=== PATIENT | female | born 1955 | race Caucasian/White ===

== ENCOUNTER 2019-04-04 06:22 | Day surgery (SDC) | payer OTHER ==
[2019-04-03 09:48] VITALS: BMI 35.3
--- NOTE | 2019-04-04 09:58 | HP ---
History & Physical Update - History History: No Change (Consent signed and witnessed All questions answered) - Physical Physical: No Change - Assessment Assessment: No Change - Plan Plan: No Change (Procedure explained to the patient Consent signed and witnessed )
[2019-04-04] MEDS ORDERED: IBUPROFEN 600 MG TABLET (FP) PO PRN (09:59)
[2019-04-04] MEDS ORDERED: IBUPROFEN 800 MG/8 ML IJ IVPB PRN (09:59)
[2019-04-04] MEDS ORDERED: ONDANSETRON 4 MG/2 ML VIAL IVPUSH PRN ×2 (09:59→11:05)
[2019-04-04] MEDS ORDERED: oxyCODONE HCL 5 MG TABLET PO PRN ×2 (09:59→11:05)
[2019-04-04] MEDS ORDERED: ELECTROLYTE-148 SOLN 1,000 ML IV SCH (10:00)
--- NOTE | 2019-04-04 10:00 | OP ---
Operative Note - Note: Operative Date: 04/04/19 Pre-Operative Diagnosis: 63yo with thick Endometrium Operation: Hysteroscopy Myomectomy, polypectomy, D&C Findings: 1. Anterior/fundal 1cm fibroid - removed sent to pathology 2. Low uterine segment polyp - removed sent to pathology Post-Operative Diagnosis: Same as Pre-op Surgeon: Glenna Nicholson Anesthesiologist/MAINS AND SERVICE SUPERVISOR: Linda Vega MD Anesthesia: General Estimated Blood Loss (mls): 5 Drains, Volume Out (mls): 100 Fluid Volume Replaced (mls): 600 Operative Report Dictated: Yes
[2019-04-04] MEDS ORDERED: MIDAZOLAM HCL 2 MG/2 ML SINGLE DOSE VIAL ONE (10:03)
[2019-04-04] MEDS ORDERED: PROPOFOL 20 ML ONE (10:08)
[2019-04-04] MEDS ORDERED: PROMETHAZINE HCL 25 MG/1 ML VIAL IVPB PRN (11:05)
[2019-04-04] MEDS ORDERED: LACTATED RINGERS SOLUTION 1,000 ML IV SCH (11:15)
[2019-04-04 13:31] VITALS: BP 131/71; PULSE 66; TEMP 98
--- NOTE | 2019-04-04 22:01 | OP ---
DATE OF OPERATION: 04/04/2019 PREOPERATIVE DIAGNOSIS: A 63-year-old with thick endometrium. OPERATION: Hysteroscopy, myomectomy, polypectomy, dilation and curettage. FINDINGS: Anterior fundal 1-cm fibroid, removed and sent to Pathology; and lower uterine segment polyp removed and sent to Pathology. POSTOPERATIVE DIAGNOSIS: A 63-year-old with thick endometrium. SURGEON: Glenna Nicholson MD ANESTHESIOLOGIST: Linda Vega MD ANESTHESIA: General. DESCRIPTION OF THE OPERATIVE PROCEDURE: After assuring informed consent, patient was brought to the operating room, where she was placed in dorsal lithotomy position. Perineum and vagina were prepped and draped in sterile fashion. Mcduffie retractors were placed into the vagina and cervix was articulated with single-tooth tenaculum. Cervix was dilated without any difficulty and a Symphion hysteroscope was introduced into the cervix and the uterus. Above findings were noted, and the hand-held resecting device was introduced through the resecting port. A 9-Greek resecting device was used to remove the fibroid and the polyp. Excellent hemostasis was noted. All instruments were removed from the uterus, cervix, and vagina. Estimated blood loss 5 mL. Urine output 100 mL. The patient received 600 mL of IV fluid. Patient tolerated the procedure well. Instrument and sponge count was correct x2. Patient was brought to the recovery room in stable condition. Karishma [id number]
--- NOTE | 2019-04-05 18:05 | PATH ---
Surgical Pathology Report Patient Name: KRISTEL HANSEN [facility]. Rec. #: [id number] /Age/Gender: 1955 (Age: 63) / F Account: [id number] Location: [facility] Taken: 04/04/2019 Received: 04/04/2019 Reported: 04/05/2019 Physicians: Glenna Nicholson M.D. Specimen(s) Received A: ENDOMETRIAL CURETTINGS B: FIBROID Clinical History Endometrial polyp Final Diagnosis A. ENDOMETRIAL CURETTINGS, DILATION AND CURETTAGE: FRAGMENTS OF FIBROMUSCULAR TISSUE CONSISTENT WITH SUBMUCOSAL LEIOMYOMA, STRIPS OF ENDOMETRIUM CONSISTENT WITH ATROPHIC ENDOMETRIUM, AND BENIGN CERVICAL TISSUE IN A BACKGROUND OF ABUNDANT MUCUS. B. FIBROID, MYOMECTOMY: RARE FRAGMENTS OF FIBROMUSCULAR TISSUE CONSISTENT WITH SUBMUCOSAL LEIOMYOMA. SCANT BENIGN CERVICAL TISSUE. Electronically Signed Maite Lou M.D. Gross Description A. Received in formalin labeled "endometrial curettings," is a 1.5 x 1.0 x 0.3 cm aggregate of grant-brown soft tissue fragments admixed with mucus. The formalin is filtered and the specimen is entirely submitted in one cassette. B. Received in formalin labeled "fibroid," is a less than 1 g, 0.2 x 0.1 x 0.1 cm aggregate of grant soft tissue fragments. The formalin is filtered and the specimen is entirely submitted in one cassette. /04/04/2019 saudi/04/04/2019
== END 2019-04-04 13:30 | disposition home or self-care (01) ==
LOC: JASU-SURG 06:22
PROVIDERS: ATTEND Obstetrics & Gynecology
PROC: 0UDB7ZX Extraction of Endometrium, Via Natural or Artificial Opening, Diagnostic (ICD-10-PCS; 2019-04-04)
PROC: 0UJD8ZZ Inspection of Uterus and Cervix, Via Natural or Artificial Opening Endoscopic (ICD-10-PCS; 2019-04-04)
PROC: 0UB98ZZ Excision of Uterus, Via Natural or Artificial Opening Endoscopic (ICD-10-PCS; principal; 2019-04-04 09:00)
PROC: 0UB97ZX Excision of Uterus, Via Natural or Artificial Opening, Diagnostic (ICD-10-PCS; 2019-04-04 09:00)
DX: D25.9 Leiomyoma of uterus, unspecified (principal); N84.0 Polyp of corpus uteri
CPT/HCPCS: 88305-TC; 94760